=== PATIENT | male | born 1985 | race Caucasian/White ===

== ENCOUNTER 2024-08-27 14:58 | Emergency (ER) | payer OTHER, SELFPAY ==
[2024-08-27 15:01] VITALS: BP 153/96
[2024-08-27 15:29] LABS: % Basophils 0.3 % (0-2); % Immature Granulocytes 0.3 % (0-0.5); % Lymphocytes 10.8 % (20.5-51.1); % Monocytes 9.3 % (1.7-9.3); % Neutrophils 79.3 % (42.2-75.2); Absolute Lymphocytes 0.7 10^3/uL (1.2-3.4); Absolute Monocytes 0.6 10^3/uL (0.1-0.6); Absolute Neutrophils 5.3 10^3/uL (1.4-6.5); Hematocrit 44.4 % (39.0-52.0); Hemoglobin 14.9 g/dL (13.0-18.0); Mean Corp Hgb Conc. 33.6 g/dL (33.0-37.0); Mean Corpuscular Volume 89.3 fL (80.0-94.0); Nucleated Red Blood Cells % 0 % (-); Platelet Count 142 10^3/uL (130-400); Red Blood Cell Count 4.97 10^6/uL (4.70-6.10); White Blood Cell Count 6.7 10^3/uL (4.8-10.8)
--- NOTE | 2024-08-27 15:36 | ED.GENMED ---
History of Present Illness
General
Chief Complaint: Cold/Flu/URI Symptoms
Source: patient
Exam Limitations: none
Time Seen by Provider: 08/27/24 15:21
History of Present Illness
History of Present Illness:
39-year-old male otherwise healthy presents complaining of persistent pleuritic pain to the right side of his chest. He states he was sick with a fever and sinus congestion starting 3 weeks ago. He was placed on a 10-day course of antibiotics. He
is not sure which 1. He never really improved and sought treatment at an urgent care again. He was given an inhaler and Zithromax. Still notes no improvement. He is concerned about potential clot secondary to the pain in his lung. He denies
hemoptysis. No recent fever. No known injury. Dates x-rays recently in urgent care demonstrated fluid in the right lung. He denies any swelling in his legs or calf pain. No recent surgery or travel.
Past History
Past History
ED Past Medical History: None
ED Past Surgical History: None
Social History
Tobacco: Non-smoker
Alcohol: None
Living: with family
Phy Exam
Physical Exam
Physical Exam:
General: Well-appearing male no respiratory distress
HEENT: Normocephalic atraumatic
Heart: Regular rate and rhythm
Lungs: Clear throughout no obvious wheeze or rales
Extremities: No cyanosis or edema
Skin: warm, no rash
Course
Orders/Labs/Results
Orders:
Orders
08/27/24 14:59
EKG [Electrocardiogram (*1)] Urgent
Reason for Study: Chest Pain
EKG- Treatment ONCE
08/27/24 15:04
Chest [CR Chest - 2 Views ] Urgent
Comment:
Reason For Exam: pleural effusion on xr from UC
08/27/24 15:16
Complete Blood Count/With Diff Urgent
Comprehensive Metabolic Panel Urgent
Troponin I Urgent
08/27/24 15:34
CT Chest Pe Study Urgent
Comment:
Reason For Exam: right sided chest pain, sob
Abnormal Lab Results
08/27/24
15:16
Absolute Lymphs (auto) 0.7 L 10^3/uL
(1.2-3.4)
Neutrophils % 79.3 H %
(42.2-75.2)
Lymphocytes % 10.8 L %
(20.5-51.1)
Carbon Dioxide 31 H mmol/L
(22-30)
Glucose 114 H mg/dl
(70-99)
08/27/24 15:16
08/27/24 15:16
Vital Signs
Initial and Last Documented VS:
Initial Vital Signs
Temp Pulse Resp BP Pulse Ox
98.4 F 66 19 153/96 100
08/27/24 15:01 08/27/24 15:01 08/27/24 15:01 08/27/24 15:01 08/27/24 15:01
Last Documented Vital Signs
Temp Pulse Resp BP Pulse Ox
99.2 F 60 18 129/84 97
08/27/24 15:38 08/27/24 18:15 08/27/24 15:38 08/27/24 18:00 08/27/24 18:15
MDM/Problems Addressed
Differential Diagnosis Includes:
Pleuritic chest pain. Consider pleural effusion versus pleurisy versus PE versus musculoskeletal discomfort
EKG shows sinus rhythm. Chest x-ray performed here which I reviewed shows no acute finding. Concern for possible PE. CT chest pending. He is not hypoxic nor is he tachycardic
*Critical Care Note
Total Time (30-74mins, 75-104mins- exclusive of procedures): Not Applicable
Update Note
Update Note:
PE study negative for acute finding other than top normal size spleen. Vital signs are stable he is currently on a steroid and inhaler and Zithromax. Suspect possible pleurisy as source of comfort. No indication for any further intervention.
Stable for discharge.
ED Attending Note
-
Portions of this chart may have been created with voice recognition software.� Occasional wrong word or��sound alike� substitutions may have occurred due to the inherent limitations of voice recognition software.
Discharge Plan
Departure
Patient Disposition: Home (Routine Discharge)
Date of Disposition: 08/27/24
Time of Disposition: 18:35
Patient with high blood pressure during this ER visit?: No
Discharge Problem:
Pleurisy
Instructions: Pleurisy
Prescriptions:
No Action
No Current Medications
0
Referrals:
Carole Avila MD [Family Provider] -
Activity Restrictions/Additional Instructions:
Continue current medication regimen. Return here for worsening symptoms otherwise follow-up with your doctor
Interventions
Interventions:
*Risk Screen - Suicide Last Done: 08/27/24 15:01
*General Assessment Last Done: 08/27/24 15:01
*Neglect/Abuse Screening Last Done: 08/27/24 15:01
*ED COVID-19 Vaccine History Last Done: 08/27/24 15:38
ED- Pulmonary Assessment Last Done: 08/27/24 15:44
Discharge Date and Time
Print Language: MONTENEGRIN
[2024-08-27 15:37] LABS: ALT (SGPT) 21 U/L (0-50); AST (SGOT) 30 U/L (17-59); Albumin 4.8 g/dl (3.5-5.0); Alkaline Phosphatase 51 U/L (38-126); Blood Urea Nitrogen 15 mg/dl (9-20); Calcium 9.2 mg/dl (8.4-10.2); Carbon Dioxide 31 mmol/L (22-30); Chloride 101 mmol/L (98-107); Glucose 114 mg/dl (70-99); Potassium 4.2 mmol/L (3.5-5.1); Sodium 141 mmol/L (135-145); Total Bilirubin 0.4 mg/dl (0.2-1.3); Total Protein 7.4 g/dl (6.3-8.2); eGFR > 60.00
[2024-08-27 15:38] VITALS: BP 126/82; BMI 27.5
[2024-08-27 15:49] LABS: Troponin I < 0.012 ng/ml
[2024-08-27 16:00] VITALS: BP 130/80
[2024-08-27 17:01] VITALS: BP 133/83
[2024-08-27 18:00] VITALS: BP 129/84
== END 2024-08-27 18:46 | disposition home or self-care (01) ==
LOC: EMR 14:58
PROVIDERS: Student in an Organized Health Care Education/Training Program; EMERGENCY PHYSICIAN Student in an Organized Health Care Education/Training Program; FAMILY PHYSICIAN Internal Medicine
DX: R09.1 Pleurisy (principal)
CPT/HCPCS: 99284; 71046; 71275; 80053; 84484; 85025; 93005; Q9967